=== PATIENT | male | born 1980 | race Caucasian/White ===

== ENCOUNTER 2017-10-16 16:29 | Emergency (ER) | payer BC ==
[~2017-10-16] VITALS: Ht 182.8 cm; Wt 176.9 kg
[~2017-10-16 16:29] MED LIST: CARVEDILOL25 MG PO; DOXYCYCLINE MO100 MG PO; HYCODAN/HYDROMET5 ML PO; LISINOPRIL5 MG PO; MOTRIN800 MG PO; NKHM; PHENERGAN W/DM120 ML PO; ROBITUSSIN-AC480 ML PO; VIBRAMYCIN100 MG PO; ZITHROMAX Z PA250 MG PO
[2017-10-16] MEDS ORDERED: NEURONTIN300 MG PO (16:35)
[2017-10-16] MEDS ORDERED: Percocet 325 MG1 TAB PO (16:36)
[2017-10-16] MEDS ORDERED: PROVENTIL HFA6.7 GM INH (17:51)
[2017-10-16] MEDS ORDERED: PREDNISONE20 M1 PO (17:51)
[2017-10-16] MEDS ORDERED: TESSALON PERLE100 M1 PO (17:51)
== END 2017-10-16 18:40 | disposition home or self-care (01) ==
LOC: ED 16:29
DX: J10.1 Influenza due to other identified influenza virus with other respiratory manifestations (principal); Z87.01 Personal history of pneumonia (recurrent); Z79.899 Other long term (current) drug therapy; Z88.1 Allergy status to other antibiotic agents

== ENCOUNTER → 2018-07-10 | Outpatient (CLI) | payer BC ==
[~2018-07-10] MED LIST changes: +NEURONTIN300 MG PO; +PREDNISONE20 M1 PO; +PROVENTIL HFA6.7 GM INH; +Percocet 325 MG1 TAB PO; +TESSALON PERLE100 M1 PO
== END | disposition home or self-care (01) ==
LOC: RAD 13:33
DX: M23.52 Chronic instability of knee, left knee (principal); M25.562 Pain in left knee

== ENCOUNTER → 2020-05-07 | Outpatient (CLI) | payer BC | END | disposition home or self-care (01) | LOC: COVID19 05:36 | DX: Z01.818 Encounter for other preprocedural examination (principal); Z11.59 Encounter for screening for other viral diseases ==

== ENCOUNTER → 2020-05-12 | Day surgery (SDC) | payer BC ==
[~2020-05-12] VITALS: Ht 182.8 cm; Wt 174.6 kg
[~2020-05-12] MED LIST changes: +COLACE100 MG PO; +NORCO 10-325 T1 EACH PO; +ZOFRAN4 MG PO
[2020-05-12 09:21] VITALS: BP 122/57
[2020-05-12 11:18] VITALS: BP 125/76
[2020-05-12 11:33] VITALS: BP 128/75
[2020-05-12 11:48] VITALS: BP 118/56
[2020-05-12 12:03] VITALS: BP 109/60
--- NOTE | 2020-05-12 12:14 | NUR ---
IV CATHETER MREMOVED INTACT. SITE ASYMPTOMATIC.
[2020-05-12 12:18] VITALS: BP 118/70
== END | disposition home or self-care (01) ==
LOC: SDC 05-07 14:00
DX: L05.91 Pilonidal cyst without abscess (principal); I10 Essential (primary) hypertension; Z98.890 Other specified postprocedural states; Z79.899 Other long term (current) drug therapy; Z88.8 Allergy status to other drugs, medicaments and biological substances

== ENCOUNTER 2021-01-08 09:00 | Inpatient (IN) | payer OTHER ==
[2021-01-08] VITALS (9 sets, daily range): BP systolic 85–124; BP diastolic 41–65
[~2021-01-08] VITALS: Ht 177.8 cm; Wt 180.8 kg
[~2021-01-08 09:00] MED LIST changes: +LISINOPRIL10 M1 PO; -LISINOPRIL5 MG PO
[2021-01-08 10:00] LABS: HEMATOCRIT 39.2 % (42.0-52.0); MEAN CELL VOLUME 81.8 fl (80.0-94.0); MEAN CORPUSCULAR HGB 27.3 pg (27.0-31.0); MEAN CORPUSCULAR HGB CONC 33.4 g/dl (33.0-37.0); PLATELET COUNT AUTOMATED 388 10*3/uL (130-400); RED BLOOD COUNT 4.79 10*6/uL (4.50-5.90); RED CELL DISTRI WIDTH 14.1 % (0-14.5); WHITE BLOOD COUNT 23.9 10*3/uL (4.8-10.8)
[2021-01-08 10:11] LABS: ACT PARTIAL THROMBO TIME 31.3 SECONDS (20.0-32.1); INTERNATIONAL NORM RATIO 1.2 (2.0-3.5)
[2021-01-08 10:16] LABS: ALBUMIN 2.7 gm/dl (3.1-4.5); ALKALINE PHOSPHATASE 83 U/L (45-117); BUN 36 mg/dl (7-24); CHLORIDE 98 mmol/L (98-107); CREATININE 3.66 mg/dL (0.70-1.30); LIPASE 44 U/L (73-393); POTASSIUM 3.8 mmol/L (3.5-5.1); SGOT/AST 15 IU/L (3-35); SGPT/ALT 23 U/L (12-78); SODIUM 131 mmol/L (136-145); TOTAL PROTEIN 7.8 gm/dL (6.4-8.2)
[2021-01-08 10:17] LABS: TROPONIN I < 0.015 ng/ml (<0.045)
[2021-01-08 10:19] LABS: BASOPHILS 2 % (0-1); TOTAL CELLS COUNTED 100 #CELLS
[2021-01-08 10:20] LABS: PLATELET SUFFICIENCY NORMAL (NORMAL); POLYCHROMASIA SLIGHT
[2021-01-08] MEDS ORDERED: BUTRANS1 EAC2 TD (14:27)
[2021-01-08] MEDS ORDERED: TRAMADOL HCL E200 M1 PO (14:27)
[2021-01-08] MEDS ORDERED: MS CONTIN15 MG PO (14:28)
[2021-01-08 22:21] LABS: BILIRUBIN Negative (Negative); BLOOD 1+ (Negative); CLARITY Cloudy (Clear); COLOR Dark Yellow (Yellow); GLUCOSE Negative (Negative); KETONE Trace (Negative); LEUKO ESTERASE Negative (Negative); NITRITE Negative (Negative); SPECIFIC GRAVITY 1.025 (1.001-1.030)
[2021-01-08 22:50] LABS: FINE GRANULAR CAST 21-30
[2021-01-09] VITALS (7 sets, daily range): BP systolic 104–135; BP diastolic 50–78
[2021-01-09 06:04] LABS: HEMATOCRIT 36.2 % (42.0-52.0); MEAN CELL VOLUME 84.8 fl (80.0-94.0); MEAN CORPUSCULAR HGB 27.4 pg (27.0-31.0); MEAN CORPUSCULAR HGB CONC 32.3 g/dl (33.0-37.0); MEAN PLATELET VOLUME 10.1 fl (9.6-12.3); PLATELET COUNT AUTOMATED 327 10*3/uL (130-400); RED BLOOD COUNT 4.27 10*6/uL (4.50-5.90); RED CELL DISTRI WIDTH 14.5 % (0-14.5); WHITE BLOOD COUNT 24.4 10*3/uL (4.8-10.8)
[2021-01-09 06:38] LABS: FREE T4 1.52 ng/dl (0.76-1.46); THYROID STIM HORMONE (HS) 0.514 uIU/ml (0.358-4.75)
[2021-01-09 06:49] LABS: PLATELET SUFFICIENCY NORMAL (NORMAL); TOTAL CELLS COUNTED 100 #CELLS
[2021-01-09 06:50] LABS: BURR CELLS FEW; POLYCHROMASIA SLIGHT; TOXIC GRANULATION SLIGHT
[2021-01-09 08:53] LABS: ALBUMIN 2.3 gm/dl (3.1-4.5); CREATININE 2.31 mg/dL (0.70-1.30); POTASSIUM 4.4 mmol/L (3.5-5.1)
[2021-01-10] VITALS: BP 101/53
[2021-01-10 04:00] VITALS: BP 120/70
[2021-01-10 05:14] LABS: BUN 31 mg/dl (7-24); CHLORIDE 110 mmol/L (98-107); POTASSIUM 4.1 mmol/L (3.5-5.1); SODIUM 140 mmol/L (136-145)
[2021-01-10 06:08] LABS: HEMATOCRIT 35.4 % (42.0-52.0); MEAN CELL VOLUME 85.1 fl (80.0-94.0); MEAN CORPUSCULAR HGB 27.2 pg (27.0-31.0); MEAN CORPUSCULAR HGB CONC 31.9 g/dl (33.0-37.0); MEAN PLATELET VOLUME 10.2 fl (9.6-12.3); PLATELET COUNT AUTOMATED 374 10*3/uL (130-400); RED BLOOD COUNT 4.16 10*6/uL (4.50-5.90); RED CELL DISTRI WIDTH 14.6 % (0-14.5); WHITE BLOOD COUNT 24.5 10*3/uL (4.8-10.8)
[2021-01-10 06:44] LABS: PLATELET SUFFICIENCY NORMAL (NORMAL); TOTAL CELLS COUNTED 100 #CELLS
[2021-01-10 08:00] VITALS: BP 110/63
[2021-01-10 12:00] VITALS: BP 121/64
[2021-01-10 16:00] VITALS: BP 101/49
[2021-01-10 20:00] VITALS: BP 121/62
[2021-01-11] VITALS: BP 136/69
[2021-01-11 04:00] VITALS: BP 153/51
[2021-01-11 04:28] LABS: HEMATOCRIT 34.8 % (42.0-52.0); MEAN CELL VOLUME 85.5 fl (80.0-94.0); MEAN CORPUSCULAR HGB CONC 31.6 g/dl (33.0-37.0); MEAN PLATELET VOLUME 9.3 fl (9.6-12.3); PLATELET COUNT AUTOMATED 342 10*3/uL (130-400); RED BLOOD COUNT 4.07 10*6/uL (4.50-5.90); RED CELL DISTRI WIDTH 14.8 % (0-14.5); WHITE BLOOD COUNT 13.3 10*3/uL (4.8-10.8)
[2021-01-11 04:39] LABS: BUN 27 mg/dl (7-24); CHLORIDE 110 mmol/L (98-107); CREATININE 1.09 mg/dL (0.70-1.30); POTASSIUM 4.1 mmol/L (3.5-5.1); SODIUM 141 mmol/L (136-145)
[2021-01-11 05:38] LABS: TOTAL CELLS COUNTED 100 #CELLS
[2021-01-11 05:39] LABS: PLATELET SUFFICIENCY NORMAL (NORMAL)
[2021-01-11 08:00] VITALS: BP 122/60
[2021-01-11 12:00] VITALS: BP 121/69
[2021-01-11 16:00] VITALS: BP 115/65
[2021-01-11 20:00] VITALS: BP 142/88
[2021-01-12] VITALS: BP 144/72
[2021-01-12 05:57] LABS: BUN 22 mg/dl (7-24); CHLORIDE 110 mmol/L (98-107); CREATININE 0.92 mg/dL (0.70-1.30); POTASSIUM 4.2 mmol/L (3.5-5.1); SODIUM 141 mmol/L (136-145)
[2021-01-12 06:10] LABS: HEMATOCRIT 37.5 % (42.0-52.0); MEAN CELL VOLUME 84.1 fl (80.0-94.0); MEAN CORPUSCULAR HGB 26.5 pg (27.0-31.0); MEAN CORPUSCULAR HGB CONC 31.5 g/dl (33.0-37.0); MEAN PLATELET VOLUME 9.3 fl (9.6-12.3); PLATELET COUNT AUTOMATED 378 10*3/uL (130-400); RED BLOOD COUNT 4.46 10*6/uL (4.50-5.90); RED CELL DISTRI WIDTH 14.1 % (0-14.5); WHITE BLOOD COUNT 14.7 10*3/uL (4.8-10.8)
[2021-01-12 06:56] LABS: BASOPHILS 1 % (0-1); TOTAL CELLS COUNTED 100 #CELLS
[2021-01-12 06:57] LABS: PLATELET SUFFICIENCY NORMAL (NORMAL); POLYCHROMASIA SLIGHT
[2021-01-12 08:00] VITALS: BP 140/76
[2021-01-12 12:00] VITALS: BP 151/85
[2021-01-12 16:00] VITALS: BP 149/81
[2021-01-12 20:00] VITALS: BP 150/70
[2021-01-13] VITALS: BP 157/84
[2021-01-13 06:17] LABS: HEMATOCRIT 36.6 % (42.0-52.0); MEAN CELL VOLUME 84.1 fl (80.0-94.0); MEAN CORPUSCULAR HGB 26.9 pg (27.0-31.0); MEAN PLATELET VOLUME 9.4 fl (9.6-12.3); PLATELET COUNT AUTOMATED 382 10*3/uL (130-400); RED BLOOD COUNT 4.35 10*6/uL (4.50-5.90); RED CELL DISTRI WIDTH 13.7 % (0-14.5); WHITE BLOOD COUNT 18.5 10*3/uL (4.8-10.8)
[2021-01-13 06:43] LABS: BUN 18 mg/dl (7-24); CHLORIDE 107 mmol/L (98-107); POTASSIUM 4.1 mmol/L (3.5-5.1); SODIUM 139 mmol/L (136-145)
[2021-01-13 06:44] LABS: CREATININE 0.83 mg/dL (0.70-1.30)
[2021-01-13 07:03] LABS: ATYPICAL LYMPHS 1 % (0-0); PLATELET SUFFICIENCY NORMAL (NORMAL); TOTAL CELLS COUNTED 100 #CELLS; TOXIC GRANULATION SLIGHT
[2021-01-13 07:04] LABS: POLYCHROMASIA SLIGHT
[2021-01-13 08:00] VITALS: BP 161/82
[2021-01-13 14:00] VITALS: BP 150/71
[2021-01-13 16:00] VITALS: BP 156/69
[2021-01-13 20:00] VITALS: BP 154/82
[2021-01-14] VITALS: BP 148/61
[2021-01-14 06:18] LABS: HEMATOCRIT 34.1 % (42.0-52.0); MEAN CELL VOLUME 84.4 fl (80.0-94.0); MEAN CORPUSCULAR HGB 27.5 pg (27.0-31.0); MEAN CORPUSCULAR HGB CONC 32.6 g/dl (33.0-37.0); MEAN PLATELET VOLUME 9.5 fl (9.6-12.3); PLATELET COUNT AUTOMATED 348 10*3/uL (130-400); RED BLOOD COUNT 4.04 10*6/uL (4.50-5.90); RED CELL DISTRI WIDTH 13.6 % (0-14.5)
[2021-01-14 07:01] LABS: PLATELET SUFFICIENCY NORMAL (NORMAL); POLYCHROMASIA SLIGHT; TOTAL CELLS COUNTED 100 #CELLS
[2021-01-14 07:03] LABS: VACUOLATION OF NEUTROPHILS SLIGHT
[2021-01-14 08:00] VITALS: BP 141/90
[2021-01-14 12:00] VITALS: BP 159/93
[2021-01-14 16:00] VITALS: BP 155/93
[2021-01-14 20:00] VITALS: BP 181/89
[2021-01-15] VITALS (9 sets, daily range): BP systolic 102–167; BP diastolic 73–96
[2021-01-16] VITALS: BP 157/72
[2021-01-16 06:31] LABS: MEAN CELL VOLUME 82.9 fl (80.0-94.0); MEAN CORPUSCULAR HGB 26.5 pg (27.0-31.0); MEAN PLATELET VOLUME 9.2 fl (9.6-12.3); PLATELET COUNT AUTOMATED 365 10*3/uL (130-400); RED BLOOD COUNT 4.22 10*6/uL (4.50-5.90); RED CELL DISTRI WIDTH 13.3 % (0-14.5); WHITE BLOOD COUNT 12.5 10*3/uL (4.8-10.8)
[2021-01-16 07:20] LABS: PLATELET SUFFICIENCY NORMAL (NORMAL); TOTAL CELLS COUNTED 100 #CELLS
[2021-01-16 08:00] VITALS: BP 150/83
[2021-01-16] MEDS ORDERED: VITAMIN D350 MC2 PO (11:14)
[2021-01-16] MEDS ORDERED: CIPRO500 MG PO (11:14)
[2021-01-16] MEDS ORDERED: FLAGYL500 MG PO (11:14)
[2021-01-16] MEDS ORDERED: PERCOCET 7.5-31 EACH PO (11:17)
[2021-01-16] MEDS ORDERED: ZOFRAN4 MG PO ×2 (11:17→11:42)
[2021-01-16 12:00] VITALS: BP 144/73
== END 2021-01-16 14:07 | disposition home health service (06) | DRG 710 ==
LOC: ED 09:00 → EDHOLD 12:55 → 4E 12:55 → ICCU 12:55 → 4E 01-11 19:42
PROVIDERS: Emergency Medicine; Family Medicine; Hospitalist; Student in an Organized Health Care Education/Training Program; ADMIT Student in an Organized Health Care Education/Training Program; ATTEND Student in an Organized Health Care Education/Training Program
PROC: 0DBE0ZZ Excision of Large Intestine, Open Approach (ICD-10-PCS; principal; 2021-01-08)
PROC: 0DSN0ZZ Reposition Sigmoid Colon, Open Approach (ICD-10-PCS; 2021-01-08)
PROC: 0H87XZZ Division of Abdomen Skin, External Approach (ICD-10-PCS; 2021-01-15)
DX: A41.50 Gram-negative sepsis, unspecified (principal); K57.20 Diverticulitis of large intestine with perforation and abscess without bleeding; N17.0 Acute kidney failure with tubular necrosis; I10 Essential (primary) hypertension; E43 Unspecified severe protein-calorie malnutrition; E87.2 Acidosis; R65.20 Severe sepsis without septic shock; Z88.1 Allergy status to other antibiotic agents; Z90.49 Acquired absence of other specified parts of digestive tract; Z83.3 Family history of diabetes mellitus; Z79.899 Other long term (current) drug therapy; Z68.43 Body mass index [BMI] 50.0-59.9, adult

== ENCOUNTER → 2021-07-13 | Day surgery (SDC) | payer OTHER ==
[~2021-07-13] VITALS: Ht 182.8 cm; Wt 174.6 kg
[~2021-07-13] MED LIST changes: +BUTRANS1 EAC2 TD; +CIPRO500 MG PO; +FLAGYL500 MG PO; +MS CONTIN15 MG PO; +PERCOCET 7.5-31 EACH PO; +TRAMADOL HCL E200 M1 PO; +VITAMIN D350 MC2 PO; +XTAMPZA ER13.5 MG PO
[2021-07-13 06:45] VITALS: BP 168/85
[2021-07-13 07:50] VITALS: BP 132/68
[2021-07-13 08:05] VITALS: BP 146/92
[2021-07-13 08:20] VITALS: BP 146/92
== END | disposition home or self-care (01) ==
LOC: SDC 07-10 08:00
PROVIDERS: ATTEND Surgery
DX: K57.20 Diverticulitis of large intestine with perforation and abscess without bleeding (principal); I10 Essential (primary) hypertension; Z88.1 Allergy status to other antibiotic agents; Z79.899 Other long term (current) drug therapy; Z20.822 Contact with and (suspected) exposure to COVID-19

== ENCOUNTER 2021-10-22 00:12 | Inpatient (IN) | payer OTHER ==
[2021-10-19 13:45] VITALS: BP 127/50
[2021-10-21 15:41] LABS: BASO # 0.1 10*3/uL (0.0-0.1); BASO % 0.6 % (0.0-1.0); EOS # 0.2 10*3/uL (0.0-0.4); EOS % 2.5 % (1.0-4.0); HEMATOCRIT 41.2 % (42.0-52.0); LYMPH # 2.2 10*3/uL (1.3-4.4); LYMPH % 25.3 % (27.0-41.0); MEAN CELL VOLUME 82.9 fl (80.0-94.0); MEAN CORPUSCULAR HGB 27.8 pg (27.0-31.0); MEAN CORPUSCULAR HGB CONC 33.5 g/dl (33.0-37.0); MEAN PLATELET VOLUME 10.2 fl (9.6-12.3); MONO # 0.5 10*3/uL (0.1-1.0); MONO % 5.6 % (3.0-9.0); NEUT # 5.6 10*3/uL (2.3-7.9); NEUT % 65.3 % (47.0-73.0); PLATELET COUNT AUTOMATED 278 10*3/uL (130-400); RED BLOOD COUNT 4.97 10*6/uL (4.50-5.90); RED CELL DISTRI WIDTH 14.8 % (0-14.5); WHITE BLOOD COUNT 8.6 10*3/uL (4.8-10.8)
[2021-10-21 15:56] LABS: ALBUMIN 3.4 gm/dl (3.1-4.5); ALKALINE PHOSPHATASE 102 U/L (45-117); BUN 13 mg/dl (7-24); CHLORIDE 108 mmol/L (98-107); CREATININE 1.17 mg/dL (0.70-1.30); POTASSIUM 3.7 mmol/L (3.5-5.1); SGOT/AST 18 IU/L (3-35); SGPT/ALT 40 U/L (12-78); SODIUM 140 mmol/L (136-145); TOTAL PROTEIN 7.6 gm/dL (6.4-8.2)
[2021-10-22] VITALS (9 sets, daily range): BP systolic 125–200; BP diastolic 44–100
[~2021-10-22] VITALS: Ht 182.8 cm; Wt 174.6 kg
[2021-10-23] VITALS: BP 98/50
[2021-10-23 06:43] LABS: BASO % 0.2 % (0.0-1.0); EOS % 0.2 % (1.0-4.0); HEMATOCRIT 41.6 % (42.0-52.0); LYMPH # 0.8 10*3/uL (1.3-4.4); LYMPH % 4.5 % (27.0-41.0); MEAN CELL VOLUME 85.6 fl (80.0-94.0); MEAN CORPUSCULAR HGB 27.4 pg (27.0-31.0); MEAN PLATELET VOLUME 10.1 fl (9.6-12.3); MONO # 1.1 10*3/uL (0.1-1.0); MONO % 5.7 % (3.0-9.0); NEUT # 16.4 10*3/uL (2.3-7.9); NEUT % 88.4 % (47.0-73.0); PLATELET COUNT AUTOMATED 291 10*3/uL (130-400); RED BLOOD COUNT 4.86 10*6/uL (4.50-5.90); RED CELL DISTRI WIDTH 15.1 % (0-14.5); WHITE BLOOD COUNT 18.6 10*3/uL (4.8-10.8)
[2021-10-23 06:54] LABS: BUN 14 mg/dl (7-24); CHLORIDE 107 mmol/L (98-107); CREATININE 0.97 mg/dL (0.70-1.30); POTASSIUM 4.3 mmol/L (3.5-5.1); SODIUM 138 mmol/L (136-145)
[2021-10-23 08:00] VITALS: BP 136/54
[2021-10-23 12:00] VITALS: BP 132/66
[2021-10-23 16:00] VITALS: BP 133/67
[2021-10-23 20:00] VITALS: BP 120/55
[2021-10-24] VITALS: BP 120/62
[2021-10-24 06:28] LABS: BASO % 0.2 % (0.0-1.0); EOS % 0.2 % (1.0-4.0); HEMATOCRIT 36.2 % (42.0-52.0); LYMPH # 1.2 10*3/uL (1.3-4.4); LYMPH % 7.3 % (27.0-41.0); MEAN CELL VOLUME 88.3 fl (80.0-94.0); MEAN CORPUSCULAR HGB 27.3 pg (27.0-31.0); MEAN CORPUSCULAR HGB CONC 30.9 g/dl (33.0-37.0); MONO # 1.2 10*3/uL (0.1-1.0); MONO % 7.7 % (3.0-9.0); NEUT # 13.4 10*3/uL (2.3-7.9); NEUT % 83.7 % (47.0-73.0); PLATELET COUNT AUTOMATED 257 10*3/uL (130-400); RED CELL DISTRI WIDTH 15.5 % (0-14.5)
[2021-10-24 06:29] LABS: CHLORIDE 106 mmol/L (98-107); POTASSIUM 4.5 mmol/L (3.5-5.1); SODIUM 139 mmol/L (136-145)
[2021-10-24 06:36] LABS: ALBUMIN 2.9 gm/dl (3.1-4.5); ALKALINE PHOSPHATASE 57 U/L (45-117); CREATININE 1.23 mg/dL (0.70-1.30); SGOT/AST 22 IU/L (3-35); SGPT/ALT 27 U/L (12-78); TOTAL PROTEIN 6.9 gm/dL (6.4-8.2)
[2021-10-24 06:38] LABS: BUN 25 mg/dl (7-24)
[2021-10-24 08:00] VITALS: BP 100/50; BP 84/38
[2021-10-24 09:41] VITALS: BP 90/41
[2021-10-24 12:00] VITALS: BP 106/60
[2021-10-24 16:00] VITALS: BP 130/64
[2021-10-24 20:00] VITALS: BP 185/74
[2021-10-25] VITALS: BP 123/58
[2021-10-25 06:32] LABS: BASO # 0.1 10*3/uL (0.0-0.1); BASO % 0.5 % (0.0-1.0); EOS # 0.2 10*3/uL (0.0-0.4); LYMPH # 1.8 10*3/uL (1.3-4.4); LYMPH % 14.9 % (27.0-41.0); MEAN CELL VOLUME 86.5 fl (80.0-94.0); MEAN CORPUSCULAR HGB 27.5 pg (27.0-31.0); MEAN CORPUSCULAR HGB CONC 31.8 g/dl (33.0-37.0); MEAN PLATELET VOLUME 10.1 fl (9.6-12.3); MONO # 1.1 10*3/uL (0.1-1.0); MONO % 9.2 % (3.0-9.0); NEUT # 8.5 10*3/uL (2.3-7.9); NEUT % 72.3 % (47.0-73.0); PLATELET COUNT AUTOMATED 241 10*3/uL (130-400); RED BLOOD COUNT 3.93 10*6/uL (4.50-5.90); WHITE BLOOD COUNT 11.8 10*3/uL (4.8-10.8)
[2021-10-25 08:00] VITALS: BP 153/65
[2021-10-25 12:00] VITALS: BP 136/63
[2021-10-25 16:00] VITALS: BP 130/62
[2021-10-25 20:00] VITALS: BP 154/72
[2021-10-26] VITALS: BP 152/80
[2021-10-26 06:27] LABS: BASO # 0.1 10*3/uL (0.0-0.1); BASO % 0.7 % (0.0-1.0); EOS # 0.4 10*3/uL (0.0-0.4); HEMATOCRIT 34.7 % (42.0-52.0); LYMPH # 1.6 10*3/uL (1.3-4.4); LYMPH % 16.8 % (27.0-41.0); MEAN CORPUSCULAR HGB 27.2 pg (27.0-31.0); MEAN PLATELET VOLUME 9.8 fl (9.6-12.3); MONO # 0.8 10*3/uL (0.1-1.0); MONO % 8.4 % (3.0-9.0); NEUT # 6.7 10*3/uL (2.3-7.9); NEUT % 68.6 % (47.0-73.0); PLATELET COUNT AUTOMATED 266 10*3/uL (130-400); RED BLOOD COUNT 4.08 10*6/uL (4.50-5.90); RED CELL DISTRI WIDTH 14.6 % (0-14.5); WHITE BLOOD COUNT 9.7 10*3/uL (4.8-10.8)
[2021-10-26 08:00] VITALS: BP 148/75
[2021-10-26] MEDS ORDERED: PERCOCET 5-3251 EACH PO (10:28)
[2021-10-26] MEDS ORDERED: ONDANSETRON HYDR4 M1 PO (10:28)
[2021-10-26 12:00] VITALS: BP 111/48; BP 161/93
== END 2021-10-26 14:10 | disposition home health service (06) | DRG 331 ==
LOC: SDC 00:12 → 4E 13:29
PROVIDERS: Internal Medicine; Student in an Organized Health Care Education/Training Program; Surgery; ADMIT Student in an Organized Health Care Education/Training Program; ATTEND Student in an Organized Health Care Education/Training Program
PROC: 0DNW4ZZ Release Peritoneum, Percutaneous Endoscopic Approach (ICD-10-PCS; principal; 2021-10-22)
PROC: 0DBE0ZZ Excision of Large Intestine, Open Approach (ICD-10-PCS; 2021-10-22)
PROC: 0DNU4ZZ Release Omentum, Percutaneous Endoscopic Approach (ICD-10-PCS; 2021-10-22)
PROC: 0WJP4ZZ Inspection of Gastrointestinal Tract, Percutaneous Endoscopic Approach (ICD-10-PCS; 2021-10-22)
PROC: 03HY32Z Insertion of Monitoring Device into Upper Artery, Percutaneous Approach (ICD-10-PCS; 2021-10-22)
PROC: 4A133B1 Monitoring of Arterial Pressure, Peripheral, Percutaneous Approach (ICD-10-PCS; 2021-10-22)
PROC: 4A133J1 Monitoring of Arterial Pulse, Peripheral, Percutaneous Approach (ICD-10-PCS; 2021-10-22)
DX: K57.30 Diverticulosis of large intestine without perforation or abscess without bleeding (principal); I16.0 Hypertensive urgency; D64.9 Anemia, unspecified; E55.9 Vitamin D deficiency, unspecified; Z20.822 Contact with and (suspected) exposure to COVID-19; R73.9 Hyperglycemia, unspecified; I10 Essential (primary) hypertension; E66.01 Morbid (severe) obesity due to excess calories; G62.9 Polyneuropathy, unspecified; Z88.1 Allergy status to other antibiotic agents; Z90.49 Acquired absence of other specified parts of digestive tract; Z79.1 Long term (current) use of non-steroidal anti-inflammatories (NSAID); Z79.899 Other long term (current) drug therapy

== ENCOUNTER → 2022-12-13 | Day surgery (SDC) | payer OTHER ==
[~2022-12-13] MED LIST changes: +ONDANSETRON HYDR4 M1 PO; +PERCOCET 5-3251 EACH PO
[2022-12-13 10:29] VITALS: BP 132/78
[2022-12-13 10:44] VITALS: BP 143/77
[2022-12-13 10:59] VITALS: BP 148/80
== END | disposition home or self-care (01) ==
LOC: SDC 12-09 14:00
PROVIDERS: ATTEND Surgery
DX: Z12.11 Encounter for screening for malignant neoplasm of colon (principal); K57.30 Diverticulosis of large intestine without perforation or abscess without bleeding; Z90.49 Acquired absence of other specified parts of digestive tract; I10 Essential (primary) hypertension; Z88.1 Allergy status to other antibiotic agents; Z98.890 Other specified postprocedural states

== ENCOUNTER → 2023-01-14 | Outpatient (CLI) | payer OTHER ==
[2023-01-14 10:44] LABS: BASO # 0.1 10*3/uL (0.0-0.1); BASO % 0.9 % (0.0-1.0); EOS # 0.2 10*3/uL (0.0-0.4); EOS % 2.6 % (1.0-4.0); HEMATOCRIT 43.6 % (42.0-52.0); LYMPH # 1.7 10*3/uL (1.3-4.4); LYMPH % 24.5 % (27.0-41.0); MEAN CELL VOLUME 82.9 fl (80.0-94.0); MEAN CORPUSCULAR HGB 27.4 pg (27.0-31.0); MEAN PLATELET VOLUME 9.7 fl (9.6-12.3); MONO # 0.5 10*3/uL (0.1-1.0); MONO % 6.5 % (3.0-9.0); NEUT # 4.5 10*3/uL (2.3-7.9); NEUT % 64.8 % (47.0-73.0); PLATELET COUNT AUTOMATED 232 10*3/uL (130-400); RED BLOOD COUNT 5.26 10*6/uL (4.50-5.90); RED CELL DISTRI WIDTH 14.1 % (0-14.5); WHITE BLOOD COUNT 6.9 10*3/uL (4.8-10.8)
[2023-01-14 10:45] LABS: BILIRUBIN Negative (Negative); BLOOD Negative (Negative); CLARITY Clear (Clear); COLOR Yellow (Yellow); GLUCOSE Negative (Negative); KETONE Negative (Negative); LEUKO ESTERASE Negative (Negative); NITRITE Negative (Negative); PH 5.5 (4.5-8.0); UROBILINOGEN 0.2 E.U./dl (0.0-1.0)
[2023-01-14 10:56] LABS: MUCOUS TRACE; WBC 0-2 wbc/hpf (0-5)
[2023-01-14 11:31] LABS: ALKALINE PHOSPHATASE 85 U/L (46-116); BUN 11 mg/dl (9-23); CHLORIDE 109 mmol/L (98-107); CHOLESTEROL 128 mg/dL (<200); GAMMA GLUTAMYL TRANSPEPTIDASE 21 U/L (0-73); LDL CHOLESTEROL 82 mg/dL (9-159); POTASSIUM 4.2 mmol/L (3.4-5.1); SGPT/ALT 27 U/L (10-49); T3 UPTAKE 30.3 % (22.4-36.7); THYROID STIM HORMONE (HS) 1.761 uIU/ml (0.550-4.780); THYROXINE (T4) TOTAL 7.8 ug/dl (4.5-10.9); TOTAL PROTEIN 7.2 gm/dL (6.0-8.0); TRIGLYCERIDES 103 mg/dl (<150); URIC ACID 9.1 mg/dL (3.7-9.2)
[2023-01-14 11:45] LABS: VITAMIN D, 25-HYDROXY 19.1 ng/mL (30-100)
== END | disposition home or self-care (01) ==
LOC: LAB 10:07
PROVIDERS: ATTEND Family Medicine
DX: E78.5 Hyperlipidemia, unspecified (principal); M51.34 Other intervertebral disc degeneration, thoracic region; M47.817 Spondylosis without myelopathy or radiculopathy, lumbosacral region; E55.9 Vitamin D deficiency, unspecified; R79.89 Other specified abnormal findings of blood chemistry; R53.83 Other fatigue; R74.8 Abnormal levels of other serum enzymes

== ENCOUNTER 2023-03-14 19:41 | Emergency (ER) | payer OTHER ==
[~2023-03-14] VITALS: Ht 182.8 cm; Wt 176.9 kg
[2023-03-14 20:18] LABS: BASO # 0.1 10*3/uL (0.0-0.1); BASO % 0.8 % (0.0-1.0); EOS # 0.2 10*3/uL (0.0-0.4); EOS % 2.8 % (1.0-4.0); HEMATOCRIT 41.8 % (42.0-52.0); LYMPH # 1.9 10*3/uL (1.3-4.4); LYMPH % 24.9 % (27.0-41.0); MEAN CELL VOLUME 83.8 fl (80.0-94.0); MEAN CORPUSCULAR HGB 27.9 pg (27.0-31.0); MEAN CORPUSCULAR HGB CONC 33.3 g/dl (33.0-37.0); MEAN PLATELET VOLUME 9.9 fl (9.6-12.3); MONO # 0.6 10*3/uL (0.1-1.0); MONO % 7.3 % (3.0-9.0); NEUT % 63.6 % (47.0-73.0); PLATELET COUNT AUTOMATED 212 10*3/uL (130-400); RED BLOOD COUNT 4.99 10*6/uL (4.50-5.90); RED CELL DISTRI WIDTH 14.3 % (0-14.5); WHITE BLOOD COUNT 7.8 10*3/uL (4.8-10.8)
[2023-03-14 20:39] LABS: ALKALINE PHOSPHATASE 91 U/L (46-116); BUN 14 mg/dl (9-23); CHLORIDE 107 mmol/L (98-107); LIPASE 32 U/L (12-53); POTASSIUM 3.8 mmol/L (3.4-5.1); SGPT/ALT 28 U/L (10-49); TOTAL PROTEIN 7.1 gm/dL (6.0-8.0)
== END 2023-03-14 22:01 | disposition home or self-care (01) ==
LOC: ED 19:41
PROVIDERS: Nurse Practitioner Family
DX: R10.9 Unspecified abdominal pain (principal); R19.5 Other fecal abnormalities; I10 Essential (primary) hypertension; Z88.1 Allergy status to other antibiotic agents; Z90.49 Acquired absence of other specified parts of digestive tract; Z98.890 Other specified postprocedural states

== ENCOUNTER → 2023-04-22 | Outpatient (CLI) | payer OTHER ==
[2023-04-22 14:41] LABS: BASO # 0.1 10*3/uL (0.0-0.1); BASO % 0.8 % (0.0-1.0); EOS # 0.2 10*3/uL (0.0-0.4); EOS % 2.5 % (1.0-4.0); HEMATOCRIT 44.2 % (42.0-52.0); LYMPH # 1.9 10*3/uL (1.3-4.4); LYMPH % 21.7 % (27.0-41.0); MEAN CELL VOLUME 83.6 fl (80.0-94.0); MEAN CORPUSCULAR HGB 27.4 pg (27.0-31.0); MEAN CORPUSCULAR HGB CONC 32.8 g/dl (33.0-37.0); MEAN PLATELET VOLUME 9.7 fl (9.6-12.3); MONO # 0.7 10*3/uL (0.1-1.0); MONO % 7.8 % (3.0-9.0); NEUT # 5.7 10*3/uL (2.3-7.9); NEUT % 66.4 % (47.0-73.0); PLATELET COUNT AUTOMATED 240 10*3/uL (130-400); RED BLOOD COUNT 5.29 10*6/uL (4.50-5.90); RED CELL DISTRI WIDTH 14.4 % (0-14.5); WHITE BLOOD COUNT 8.6 10*3/uL (4.8-10.8)
[2023-04-22 15:30] LABS: ALKALINE PHOSPHATASE 93 U/L (46-116); BUN 12 mg/dl (9-23); CHLORIDE 106 mmol/L (98-107); SGPT/ALT 37 U/L (10-49); TOTAL PROTEIN 7.4 gm/dL (6.0-8.0)
[2023-04-23 14:09] LABS: t-TRANSGLUTAMINASE (tTG) IGA <2 U/mL (0-3); t-TRANSGLUTAMINASE (tTG) IgG 3 U/mL (0-5)
== END | disposition home or self-care (01) ==
LOC: LAB 14:20
PROVIDERS: ATTEND Nurse Practitioner Family
DX: K52.9 Noninfective gastroenteritis and colitis, unspecified (principal); R31.9 Hematuria, unspecified; R53.83 Other fatigue

== ENCOUNTER → 2023-04-29 | Outpatient (CLI) | payer OTHER | END | disposition home or self-care (01) | LOC: LAB 15:49 | PROVIDERS: ATTEND Nurse Practitioner Family | DX: K52.9 Noninfective gastroenteritis and colitis, unspecified (principal) ==

== ENCOUNTER 2023-07-22 18:32 | Emergency (ER) | payer OTHER ==
[~2023-07-22] VITALS: Ht 182.8 cm; Wt 179.2 kg
[2023-07-22 20:02] LABS: BASO # 0.1 10*3/uL (0.0-0.1); BASO % 0.5 % (0.0-1.0); EOS # 0.2 10*3/uL (0.0-0.4); EOS % 1.8 % (1.0-4.0); HEMATOCRIT 45.6 % (42.0-52.0); LYMPH % 14.9 % (27.0-41.0); MEAN CELL VOLUME 82.9 fl (80.0-94.0); MEAN CORPUSCULAR HGB 27.8 pg (27.0-31.0); MEAN CORPUSCULAR HGB CONC 33.6 g/dl (33.0-37.0); MEAN PLATELET VOLUME 9.7 fl (9.6-12.3); MONO # 1.1 10*3/uL (0.1-1.0); MONO % 8.2 % (3.0-9.0); NEUT # 9.7 10*3/uL (2.3-7.9); NEUT % 73.8 % (47.0-73.0); PLATELET COUNT AUTOMATED 285 10*3/uL (130-400); WHITE BLOOD COUNT 13.1 10*3/uL (4.8-10.8)
[2023-07-22 20:14] LABS: ACT PARTIAL THROMBO TIME 30.3 SECONDS (20.0-32.1)
[2023-07-22 20:21] LABS: ALKALINE PHOSPHATASE 91 U/L (46-116); BUN 11 mg/dl (9-23); CHLORIDE 105 mmol/L (98-107); LIPASE 28 U/L (12-53); POTASSIUM 3.9 mmol/L (3.4-5.1); SGPT/ALT 20 U/L (5-49); TOTAL PROTEIN 7.6 gm/dL (6.0-8.0)
[2023-07-22 22:51] LABS: BILIRUBIN Negative (Negative); BLOOD Negative (Negative); CLARITY Clear (Clear); COLOR Yellow (Yellow); GLUCOSE Negative (Negative); KETONE Negative (Negative); LEUKO ESTERASE Negative (Negative); NITRITE Negative (Negative); PH 5.5 (4.5-8.0); SPECIFIC GRAVITY >= 1.030 (1.001-1.030); UROBILINOGEN 0.2 E.U./dl (0.0-1.0)
[2023-07-22 23:12] LABS: RBC 0-2 rbc/hpf (0-2); WBC 0-2 wbc/hpf (0-5)
== END 2023-07-23 00:52 | disposition home or self-care (01) ==
LOC: ED 18:32
PROVIDERS: Student in an Organized Health Care Education/Training Program
DX: R10.9 Unspecified abdominal pain (principal); R19.7 Diarrhea, unspecified; R11.2 Nausea with vomiting, unspecified; I10 Essential (primary) hypertension; Z88.1 Allergy status to other antibiotic agents; Z90.49 Acquired absence of other specified parts of digestive tract; Z98.890 Other specified postprocedural states; Z20.822 Contact with and (suspected) exposure to COVID-19

== ENCOUNTER 2024-01-31 05:09 | Emergency (ER) | payer OTHER ==
[~2024-01-31] VITALS: Ht 182.8 cm; Wt 179.2 kg
[2024-01-31 06:06] LABS: BASO # 0.1 10*3/uL (0.0-0.1); BASO % 0.7 % (0.0-1.0); EOS # 0.3 10*3/uL (0.0-0.4); EOS % 3.1 % (1.0-4.0); HEMATOCRIT 43.1 % (42.0-52.0); LYMPH # 2.3 10*3/uL (1.3-4.4); MEAN CELL VOLUME 86.5 fl (80.0-94.0); MEAN CORPUSCULAR HGB 27.7 pg (27.0-31.0); MEAN PLATELET VOLUME 10.1 fl (9.6-12.3); MONO # 0.6 10*3/uL (0.1-1.0); NEUT # 5.2 10*3/uL (2.3-7.9); NEUT % 61.4 % (47.0-73.0); PLATELET COUNT AUTOMATED 231 10*3/uL (130-400); RED BLOOD COUNT 4.98 10*6/uL (4.50-5.90); RED CELL DISTRI WIDTH 14.6 % (0-14.5); WHITE BLOOD COUNT 8.5 10*3/uL (4.8-10.8)
[2024-01-31 06:21] LABS: URIC ACID 9.1 mg/dL (3.7-9.2)
[2024-01-31] MEDS ORDERED: PREDNISONE20 M1 PO (06:48)
[2024-01-31] MEDS ORDERED: methylPREDNISolone sod succ 125 MG VIAL IM ONE (06:50)
== END 2024-01-31 07:01 | disposition home or self-care (01) ==
LOC: ED 05:09
PROVIDERS: Emergency Medicine
DX: M10.071 Idiopathic gout, right ankle and foot (principal); M76.61 Achilles tendinitis, right leg; I10 Essential (primary) hypertension; Z88.1 Allergy status to other antibiotic agents; Z79.899 Other long term (current) drug therapy; Z90.49 Acquired absence of other specified parts of digestive tract